=== PATIENT | male | born 1950 | race Caucasian/White ===

== ENCOUNTER 2020-01-05 19:55 | Emergency (ER) | payer BC ==
[~2020-01-05 19:55] MED LIST: Iopamidol-370 76% 500 ML 1 ML ONE
[2020-01-05] MEDS ORDERED: Ketorolac Tromethamine 30 MG/ML VIAL ONE ×2 (20:44→23:43)
[2020-01-05] MEDS ORDERED: Ondansetron PF 4 MG/2 ML Vial ONE (20:44)
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
[2020-01-05 21:18] LABS: #Eosinphils 0.1 thou/uL (0.0-0.7); #Lymphocytes 0.6 thou/uL (1.20-3.40); #Monocytes 0.6 thou/uL (0.11-0.59); #Neutrophils 7.4 thou/uL (1.40-6.50); %Basophils 0.2 % (0.0-1.0); %Eosinophils 0.7 % (0.0-10.0); %Lymphocytes 7.1 % (21.0-51.0); Mean Corpuscular HGB CONC 33.1 g/dL (32.0-36.0); Mean Corpuscular Hemoglobin 31.2 pg (27.0-31.0); Mean Platelet Volume 7.9 fL (7.4-10.4); Platelet Count 162 thou/uL (130-400); Red Blood Cell (RBC) Count 5.47 mill/uL (4.70-6.10); White Blood Cell (WBC) Count 8.7 thou/uL (4.8-10.8)
[2020-01-05 22:46] LABS: Albumin 3.8 g/dL (3.4-4.8)
[2020-01-05 22:47] LABS: Chloride 103 mmol/L (98-107); Potassium 3.8 mmol/L (3.5-5.1); Sodium 137 mmol/L (136-145)
[2020-01-05 22:48] LABS: Calcium 8.5 mg/dL (7.8-10.44)
[2020-01-05 22:49] LABS: Globulin 2.7 g/dL (2.4-3.5); Glucose 106 mg/dL (80-115); Protein, Total 6.5 g/dL (5.8-8.1)
[2020-01-05 22:50] LABS: Anion Gap 13 mmol/L (10-20); Carbon Dioxide 25 mmol/L (23-31)
[2020-01-05 22:51] LABS: Bilirubin, Total 0.7 mg/dL (0.2-1.2)
[2020-01-05 22:52] LABS: Alkaline Phosphatase 63 U/L (40-110); Calc. Creatinine Clearance 0 mL/min (70-130)
[2020-01-05 22:53] LABS: BUN (Urea Nitrogen) 13 mg/dL (8.4-25.7)
[2020-01-05 22:54] LABS: AST (SGOT) 15 U/L (5-34); Magnesium 1.9 mg/dL (1.6-2.6)
[2020-01-05 22:55] LABS: ALT (SGPT) 15 U/L (8-55); Lipase 16 U/L (8-78)
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
[2020-01-06] MEDS ORDERED: Boostrix 0.5 ML (Tdap) VIAL ONE (00:24)
[2020-01-06] MEDS ORDERED: Bacitracin 1 PK ONE (00:25)
--- NOTE | 2020-01-10 11:24 | EKG ---
Test Reason : Blood Pressure : / mmHG Vent. Rate : 091 BPM Atrial Rate : 091 BPM P-R Int : 200 ms QRS Dur : 086 ms QT Int : 346 ms P-R-T Axes : 073 -30 043 degrees QTc Int : 425 ms Normal sinus rhythm Left axis deviation Inferior infarct , age undetermined Anterior infarct , age undetermined Abnormal ECG Confirmed by MELVA QUILES ([id number]), newspaper photo editor SERG TOMLINSON ([id number]) on 01/10/2020 11:24:04 AM Referred By: Confirmed By:MELVA QUILES
== END 2020-01-06 00:44 | disposition home or self-care (01) ==
LOC: ERS 19:55
DX: S22.42XA Multiple fractures of ribs, left side, initial encounter for closed fracture (principal); I10 Essential (primary) hypertension; G47.30 Sleep apnea, unspecified; F17.210 Nicotine dependence, cigarettes, uncomplicated; Z79.899 Other long term (current) drug therapy; V69.9XXA Occupant (driver) (passenger) of heavy transport vehicle injured in unspecified traffic accident, initial encounter
CPT/HCPCS: 36415; 71045; 71260; 74177; 80053; 83690; 83735; 84484; 85025; 90471; 90715; 93005; 96374; J1885; J2405; Q9967

== ENCOUNTER 2020-01-07 21:32 | Observation (INO) | payer BC ==
[2020-01-07] MEDS ORDERED: Morphine 4 MG/ML VIAL ONE (22:13)
[2020-01-07] MEDS ORDERED: Ketorolac Tromethamine 30 MG/ML VIAL ONE (22:13)
[2020-01-07 22:43] LABS: #Eosinphils 0.1 thou/uL (0.0-0.7); #Lymphocytes 0.7 thou/uL (1.20-3.40); #Monocytes 0.8 thou/uL (0.11-0.59); #Neutrophils 10.9 thou/uL (1.40-6.50); %Basophils 0.1 % (0.0-1.0); %Eosinophils 0.9 % (0.0-10.0); %Lymphocytes 5.5 % (21.0-51.0); %Monocytes 6.2 % (0.0-10.0); %Neutrophils 87.3 % (42.0-75.0); Hemoglobin 15.6 g/dL (14.0-18.0); Mean Corpuscular HGB CONC 33.2 g/dL (32.0-36.0); Mean Corpuscular Hemoglobin 31.9 pg (27.0-31.0); Mean Platelet Volume 7.4 fL (7.4-10.4); Platelet Count 145 thou/uL (130-400); RBC Distribution Width 13.7 % (11.5-14.5); White Blood Cell (WBC) Count 12.5 thou/uL (4.8-10.8)
[2020-01-07 23:08] LABS: ALT (SGPT) 17 U/L (8-55); AST (SGOT) 17 U/L (5-34); Albumin 3.9 g/dL (3.4-4.8); Alkaline Phosphatase 65 U/L (40-110); Anion Gap 14 mmol/L (10-20); BUN (Urea Nitrogen) 11 mg/dL (8.4-25.7); Bilirubin, Total 0.7 mg/dL (0.2-1.2); Calc. Creatinine Clearance 0 mL/min (70-130); Calcium 8.6 mg/dL (7.8-10.44); Carbon Dioxide 24 mmol/L (23-31); Chloride 104 mmol/L (98-107); Globulin 3.1 g/dL (2.4-3.5); Glucose 94 mg/dL (80-115); Sodium 138 mmol/L (136-145)
[2020-01-07] MEDS ORDERED: hydrALAZINE 20 MG/ML VIAL SLOW IVP PRN (23:18)
[2020-01-07] MEDS ORDERED: Dextrose 50% Abboject 50 ML SYRINGE SLOW IVP PRN (23:18)
[2020-01-07] MEDS ORDERED: Dextrose 5% in Water 1,000 ML IV PRN (23:18)
[2020-01-07] MEDS ORDERED: Ondansetron PF 4 MG/2 ML Vial IVP PRN (23:18)
[2020-01-07] MEDS ORDERED: Morphine 4 MG/ML VIAL SLOW IVP PRN (23:18)
[2020-01-07] MEDS ORDERED: Cyclobenzaprine 10 MG TAB PO PRN (23:20)
[2020-01-07] MEDS ORDERED: Cyclobenzaprine 10 MG TAB PO SCH (23:30)
[2020-01-07] MEDS ORDERED: Gabapentin 300 MG CAP PO SCH (23:30)
[2020-01-07] MEDS ORDERED: Fluticasone Propionate Nasal Spray 16 gm Bottle NASAL SCH (23:30)
[2020-01-08] MEDS: Acetaminophen 500 MG TAB PO SCH ×5 (00:06→23:21)
[2020-01-08] MEDS: traMADol HCl 50 MG TAB PO SCH ×5 (00:06→23:21)
[2020-01-08 00:42] VITALS: BMI 37.3
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
[2020-01-08 05:36] LABS: SARS-CoV-2 MS2 Positive; SARS-CoV-2 N Gene Negative; SARS-CoV-2 S Gene Negative; SARS-CoV-2 by NAA Not Detected (NotDetected); SARS-CoV-2 orf1ab Negative
[2020-01-08] MEDS: Ketorolac Tromethamine 30 MG/ML VIAL IVP SCH ×3 (05:58→17:56)
--- NOTE | 2020-01-08 07:05 | RAD ---
2 VIEWS CHEST: Date: 01/07/2020 COMPARISON: 04/10/2013 and 01/05/2020. CT chest 01/05/2020. HISTORY: Chest pain. FINDINGS: Two views of the chest show an enlarged but stable cardiomediastinal silhouette with atherosclerotic calcifications in the aorta. There is a stable area of eventration in the medial aspect of the right hemidiaphragm. There is no evidence of consolidation, mass, or pleural effusion. Degenerative changes are seen in the spine. IMPRESSION: No evidence of acute cardiopulmonary disease. POS: MITRA
[2020-01-08] MEDS: Gabapentin 300 MG CAP PO SCH ×3 (09:02→21:11)
[2020-01-08] MEDS: Famotidine 20 MG TAB PO SCH ×2 (09:02→21:11)
[2020-01-08] MEDS: Polyethylene Glycol 3350 17 GM Packet PO SCH (09:04)
[2020-01-08] MEDS: Senokot S 8.6-50 MG TAB PO SCH ×2 (09:04→21:11)
[2020-01-08] MEDS: Fluticasone Propionate Nasal Spray 16 gm Bottle NASAL SCH ×2 (09:08→09:11)
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
[2020-01-09] MEDS: Acetaminophen 500 MG TAB PO SCH ×2 (05:35→11:15)
[2020-01-09] MEDS: traMADol HCl 50 MG TAB PO SCH ×2 (05:36→11:15)
[2020-01-09] MEDS: Fluticasone Propionate Nasal Spray 16 gm Bottle NASAL SCH (05:46)
[2020-01-09 07:51] VITALS: BP 122/72; TEMP 98.5
[2020-01-09] MEDS: Famotidine 20 MG TAB PO SCH (08:34)
[2020-01-09] MEDS: Gabapentin 300 MG CAP PO SCH (08:34)
[2020-01-09] MEDS: Senokot S 8.6-50 MG TAB PO SCH (08:35)
[2020-01-09] MEDS: Polyethylene Glycol 3350 17 GM Packet PO SCH (08:36)
[2020-01-09] MEDS ORDERED: Ibuprofen 200 MG TAB PO SCH (14:00)
[2020-01-09] MEDS ORDERED: Ibuprofen 600 MG TAB PO SCH (14:00)
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
--- NOTE | 2020-01-10 11:26 | EKG ---
Test Reason : Blood Pressure : / mmHG Vent. Rate : 088 BPM Atrial Rate : 088 BPM P-R Int : 192 ms QRS Dur : 084 ms QT Int : 356 ms P-R-T Axes : 059 -23 033 degrees QTc Int : 430 ms Normal sinus rhythm Inferior infarct , age undetermined Anteroseptal infarct , age undetermined Abnormal ECG Confirmed by MELVA QUILES ([id number]), digital editor SERG TOMLINSON ([id number]) on 01/10/2020 11:25:45 AM Referred By: Confirmed By:MELVA QUILES
== END 2020-01-09 11:30 | disposition home or self-care (01) ==
LOC: ERS 21:32 → SURG A 22:38
PROVIDERS: ADMIT Specialist; ATTEND Specialist
DX: S22.42XA Multiple fractures of ribs, left side, initial encounter for closed fracture (principal); G89.11 Acute pain due to trauma; I10 Essential (primary) hypertension; G47.33 Obstructive sleep apnea (adult) (pediatric); F17.200 Nicotine dependence, unspecified, uncomplicated; I80.3 Phlebitis and thrombophlebitis of lower extremities, unspecified; J45.909 Unspecified asthma, uncomplicated; Z20.828 Contact with and (suspected) exposure to other viral communicable diseases; Z88.0 Allergy status to penicillin; Z88.8 Allergy status to other drugs, medicaments and biological substances; V69.40XA Driver of heavy transport vehicle injured in collision with unspecified motor vehicles in traffic accident, initial encounter
CPT/HCPCS: 36415; 71046; 80053; 84484; 85025; 87635; 93005; 94640; 96374; 96375; 96376; G0378; J1885; J2270; J7620; U0003